=== PATIENT | female | born 1940 | race Two or more races ===

== ENCOUNTER 2024-08-28 08:05 | Outpatient (RCR) | payer OTHER, SELFPAY ==
--- NOTE | 2024-08-28 09:57 | CTCCONSULT_ITS ---
[facility] [address], [place] [address] Consultation Note Date: 08/28/2024 MR#: [id number] Name: JACOB BROWN : 1940 Dx: C34.11 Malignant neoplasm of upper lobe, right bronchus or lung Referring physician. Jovani Trejo MD Reason for consultation. 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 History of Present Illness: Patient is a 83-year-old lady who underwent a biopsy of 3 center mass right upper lobe on 07/12/2024. 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 Based on prior CT scan with right hilar mediastinal involvement this was thought to be stage IIIa. Patient recently had PET scan which reportedly revealed uptake under 3 cm in the right upper lobe however possible right hip involvement. Past Medical History: History of chronic A-fib hypertension hyperlipidemia right to left cardiac shunt Meds. Atorvastatin furosemide Xarelto amiodarone metoprolol losartan Allergies none to meds Family history. 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 1 aunt maternal breast cancer Social History: Patient lives alone in an apartment with [id number] living nearby. Review of Systems: Has right hip pain. Physical Exam: General: Adequate nourished lady no acute distress HEENT: Atraumatic normocephalic extraocular was intact no oral lesions no cervical or supraclavicular adenopathy CV: Chest clear to auscultation heart regular rate and rhythm ABD: Soft no organomegaly tenderness EXT: Right hip tenderness and some limping Assessment: #!. Stage IIIa adenosquamous right upper lobe with adjacent mediastinal involvement, by CT. Recently performed PET scan reportedly shows a small T1 size right upper lobe lesion however but may reveal distant mets. #[address] Trejo who will perform a biopsy of the lytic area in the right pelvic region.. I gave patient a follow-up for 6 weeks for now to go over biopsy results. Electronically signed by: Aryan Vasquez MD, DABR 08/28/2024 9:55 AM
== END 2024-09-22 23:59 | disposition home or self-care (01) ==
LOC: SCTC 08:05
PROVIDERS: PCP Family Medicine; Referring Provider Internal Medicine Hematology & Oncology; Visit Provider Radiology Therapeutic Radiology
DX: C34.11 Malignant neoplasm of upper lobe, right bronchus or lung (principal)
CPT/HCPCS: 99213; G0463

== ENCOUNTER 2024-10-20 09:12 | Outpatient (RCR) | payer OTHER, SELFPAY ==
--- NOTE | 2024-10-01 12:26 | CTCFLWUP_ITS ---
[facility] [address], [place] [address] FOLLOW-UP NOTE Date: 10/01/2024 MR#: [id number] Name: JACOB BROWN : 1940 Dx: C34.11 Malignant neoplasm of upper lobe, right bronchus or lung Patient with right upper lobe adenosquamous cancer following biopsy 07/12/2024. 09-17 PET scan revealed a 2.1 cm lesion with no hilar or mediastinal adenopathy. There was no hilar or mediastinal lymphadenopathy. There was increased in lytic area right iliac bone which was biopsied 09/16/2024 which showed no evidence of mets. This appears to be stage I and a candidate for radiation surgery. This was discussed with Dr. Trejo medical oncologist. This was also discussed with the patient who agrees with likely 5000 cGy to the lesion in the right upper lobe. Side effects discussed consent signed. Electronically signed by: Aryan Vasquez M.D. 10/01/2024 12:24 PM
--- NOTE | 2024-10-01 12:29 | CTCTXPLN_ITS ---
[facility] [address] [place], [place] [address] Physician Clinical Treatment Planning Note Date of Service: 10/01/2024 Name: JACOB BROWN : 1940 The patient has agreed to proceed with Radiation therapy. Tests and supporting medical records were interpreted to assist in defining the tumor location and extent of disease. Further imaging will be necessary to contour and delineate the volume to which the XRT will be provided. A. Treatment Intent: Curative B. Modality: 6 MV C. Requested Technique: SBRT D. Treatment Site: Right upper chest E. Critical structures to be contoured on plan: F. In order to accomplish this plan, I am ordering/Prescribing the followin. Simulations (s) will be performed to accomplish a reproducible treatment position, to determine optimal treatment portals/beam arrangements, to design beam modifying devices and verify treatment portals on patient prior to the commencement of Radiation Therapy. Right upper chest 2. Devices; for immobilization and beam shaping: Vac-Rito 3. CT Guidance for placement of XRT dickens Scan area: 4. Portal images Frequency: 5. Invivo transit dose measurement once per week on all VMAT patients. 6. Special Physics Consult Requested for: SBRT 7. Other requests: Special procedure SBRT G. Dose Objectives: Curative Electronically signed by: Aryan Vasquez M.D. 10/01/2024 12:26 PM
--- NOTE | 2024-10-01 12:32 | CTCTXPLNST_ITS ---
Radiation Oncology Treatment Planning Sheet Name: JACOB BROWN MR#: [id number] : 1940 Dx: C34.11 Malignant neoplasm of upper lobe, right bronchus or lung Date of Service: 10/01/2024 Account #: ?? Pt Treatment Intent: curative palliative other: Stage: Procedure CPT # Ordered Spec. Procedure 72333 1 Orozco Complex (set-up) 84843 T1-T5 RUL 1 Orozco Simple 63436 IMRT Plan 46046 1 MLC Devices VMAT 36913 6 Orozco 3 D 77181 TRTMT dev Complex 77301 vaklok 1 TRTMT dev simple 58558 Basic Paulo 85179 7 Special Dosimetry 71741 Spec Physics 05126 Port Films 95028 SRS Cranial/1FX 12616 SBR 5 FX or Less /ex: 5 = 5 fx 92521 5000 5 IMRT Simple 40742 IMRT Complex 40863 IGRT 00655 5 Rad del com 6-10 46661 Rad del com 11 09132 Cont Med Physics 49352 3 Treatment Planning 68391 1 Rad del com 20 mev 76599 Rad del inter 6 50369 Rad del inter 02-11 11246 Rad del simple 6-10 63302 Rad del simple 11 47275 Special Port Plan 05515 TRTMT dev inter 54449 Isodose Complex 82976 Isodose simple 44690 Resp Motion Mgmt Simulation 63656 Placement of Fiducial Markers 07732 Electronically Signed By: Aryan Vasquez MD, WADER 10/01/2024 12:29 PM
== END 2024-10-23 23:59 | disposition home or self-care (01) ==
LOC: SCTC 09:12
PROVIDERS: PCP Family Medicine; Referring Provider Family Medicine; Visit Provider Radiology Therapeutic Radiology
DX: Z51.0 Encounter for antineoplastic radiation therapy (principal); C34.11 Malignant neoplasm of upper lobe, right bronchus or lung
CPT/HCPCS: 77014; 77290; 77300; 77301; 77334; 77338; 77470; 99213; G0463

== ENCOUNTER 2024-11-18 09:58 | Outpatient (RCR) | payer OTHER, SELFPAY | END 2024-11-23 23:59 | disposition home or self-care (01) | LOC: SCTC 09:58 | PROVIDERS: PCP Family Medicine; Referring Provider Family Medicine; Visit Provider Radiology Therapeutic Radiology | DX: Z51.0 Encounter for antineoplastic radiation therapy (principal); C34.11 Malignant neoplasm of upper lobe, right bronchus or lung; R53.0 Neoplastic (malignant) related fatigue | CPT/HCPCS: 77336; 77373 ==

== ENCOUNTER 2024-12-16 13:50 | Outpatient (RCR) | payer OTHER, SELFPAY ==
--- NOTE | 2024-12-16 14:57 | CTCTRTNOTE_ITS ---
[facility] [address], [place] [address] Weekly Management Date: 12/16/2024 ?? Name: JACOB BROWN : 1940 A. Patient is currently at 5000 cGy. B. Patient had a fall and had to be in rehab for the past 2 to 3 weeks.. C. . Unclear the cause of the fall but patient now better and got her fifth treatment without any problems or complications. Will see patient in a month for follow-up. Electronically signed by: Aryan Vasquez M.D. 12/16/2024 2:55 PM
== END 2024-12-23 23:59 | disposition home or self-care (01) ==
LOC: SCTC 13:50
PROVIDERS: PCP Family Medicine; Referring Provider Family Medicine; Visit Provider Radiology Therapeutic Radiology
DX: Z51.0 Encounter for antineoplastic radiation therapy (principal); C34.11 Malignant neoplasm of upper lobe, right bronchus or lung
CPT/HCPCS: 77336; 77373